=== PATIENT | female | born 1985 | race Two or more races ===

== ENCOUNTER 2018-11-25 12:06 | Emergency (ER) | payer MEDICAID ==
[~2018-11-25] VITALS: Ht 154.9 cm; Wt 65.8 kg
--- NOTE | 2018-11-25 12:48 | NUR ---
LOWER ABDOMINAL PAIN SINCE LAST NIGHT, FEELING FAINT WHILE AT [facility] THIS MORNING. STATES PAIN IS CURRENTLY "MINIMAL" AND FEELS DULL. DENIES CHANGES IN BOWEL/BLADDER HABITS. DENIES N/V. AWAITING EVAL. WILL MONITOR ACCORDINGLY.
[2018-11-25 13:05] LABS: BASOPHILS % (AUTO) 0.2 % (0.0-2.0); EOSINOPHILS % (AUTO) 0.5 % (0.0-6.0); HEMATOCRIT 40 % (33-45); HEMOGLOBIN 13.3 g/dL (11.5-14.8); LYMPHOCYTES # (AUTO) 1.1 /CMM (0.8-4.8); LYMPHOCYTES % (AUTO) 5.9 % (20.0-44.0); MEAN CORPUSCULAR HGB CONC 33 g/dl (31.0-36.0); MEAN CORPUSCULAR VOLUME 90 fL (82-100); MONOCYTES # (AUTO) 0.8 /CMM (0.1-1.30); MONOCYTES % (AUTO) 4.4 % (2.0-12.0); NEUTROPHILS # (AUTO) 16.3 /CMM (1.8-8.9); PLATELET COUNT (AUTO) 396 /CMM (150-450); RED BLOOD CELL COUNT(AUTO) 4.45 MIL/uL (4.0-5.2); WHITE BLOOD COUNT (AUTO) 18.4 K/uL (4.3-11.0)
--- NOTE | 2018-11-25 13:08 | NUR ---
VIDEO CONTROL OPERATOR AT BEDSIDE
--- NOTE | 2018-11-25 13:10 | NUR ---
URINE SENT TO STAT LAB
[2018-11-25 13:14] LABS: CREATININE 0.7 mg/dL (0.6-1.3); POTASSIUM 4.2 mmol/L (3.5-5.1)
[2018-11-25 13:33] LABS: APPEARANCE,URINE Clear (CLEAR); BILIRUBIN,URINE Negative (NEGATIVE); BLOOD, URINE Negative Ery/uL (NEGATIVE); COLOR,URINE Yellow (YELLOW); KETONES,URINE Negative (NEGATIVE); LEUKOCYTE ESTERASE ,URINE Negative (NEGATIVE); NITRITE, URINE Negative (NEGATIVE); PROTEIN,URINE Negative (NEGATIVE); UGLUCOSE Negative (NEGATIVE); UROBILINOGEN,URINE 0.2 EU/dL (0.2)
[2018-11-25 13:34] LABS: PH,URINE >9.0 (5.0-8.0)
--- NOTE | 2018-11-25 14:27 | NUR ---
PA ZEPYUR AT BEDSIDE FOR PELVIC EXAM
--- NOTE | 2018-11-25 15:04 | NUR ---
PT TAKEN TO CT VIA WC
--- NOTE | 2018-11-25 16:40 | NUR ---
Patient discharged to home in stable condition. Written and verbal after care instructions given. Patient verbalizes understanding of instruction.
[2018-11-25 16:53] VITALS: BP 112/86
== END 2018-11-25 16:40 | disposition home or self-care (01) ==
LOC: ER 12:06
DX: N83.201 Unspecified ovarian cyst, right side (principal); N76.0 Acute vaginitis
CPT/HCPCS: 36415; 76856-TC; 80048-TC; 81000-TC; 84703-TC; 85025-TC; 87210-TC

== ENCOUNTER 2019-02-26 13:53 | Emergency (ER) | payer MEDICAID ==
[~2019-02-26] VITALS: Ht 152.4 cm; Wt 60.8 kg
--- NOTE | 2019-02-26 14:07 | NUR ---
PT CAME TO ER C/O LARGE AMOUNT OF VAGINAL BLEED SINCE YESTERDAY. PT STATES THAT SHE HAS AN OVARIAN CYST THAT MIGHT HAVE BURST. AAOX4. AMBULATORY. NO SOB. NOT IN ANY DISTRESS. WILL CONTINUE TO MONITOR AWAITING MD SEO.
[2019-02-26 14:23] LABS: BASOPHILS # (AUTO) 0.1 /CMM (0.0-0.2); BASOPHILS % (AUTO) 0.4 % (0.0-2.0); EOSINOPHILS % (AUTO) 0.1 % (0.0-6.0); HEMATOCRIT 36 % (33-45); HEMOGLOBIN 12.1 g/dL (11.5-14.8); LYMPHOCYTES # (AUTO) 1.1 /CMM (0.8-4.8); LYMPHOCYTES % (AUTO) 5.6 % (20.0-44.0); MEAN CORPUSCULAR HGB CONC 33 g/dl (31.0-36.0); MEAN CORPUSCULAR VOLUME 93 fL (82-100); MONOCYTES # (AUTO) 0.9 /CMM (0.1-1.30); MONOCYTES % (AUTO) 4.4 % (2.0-12.0); NEUTROPHILS # (AUTO) 17.6 /CMM (1.8-8.9); NEUTROPHILS % (AUTO) 89.5 % (43.0-81.0); PLATELET COUNT (AUTO) 310 /CMM (150-450); RED BLOOD CELL COUNT(AUTO) 3.89 MIL/uL (4.0-5.2); WHITE BLOOD COUNT (AUTO) 19.7 K/uL (4.3-11.0)
[2019-02-26 14:38] LABS: CALCIUM, SERUM 8.6 mg/dL (8.5-10.1); CREATININE 0.7 mg/dL (0.6-1.3)
[2019-02-26 14:40] LABS: APPEARANCE,URINE SLIGHTLY HAZY (CLEAR); BILIRUBIN,URINE SMALL (NEGATIVE); BLOOD, URINE Trace-intact Ery/uL (NEGATIVE); COLOR,URINE DARK YELLOW (YELLOW); KETONES,URINE Trace (NEGATIVE); LEUKOCYTE ESTERASE ,URINE Negative (NEGATIVE); NITRITE, URINE Negative (NEGATIVE); PH,URINE 6.5 (5.0-8.0); PROTEIN,URINE 30 mg/dl (NEGATIVE); UGLUCOSE Negative (NEGATIVE); UROBILINOGEN,URINE 0.2 EU/dL (0.2)
[2019-02-26 14:43] LABS: ALBUMIN 3.9 g/dL (3.4-5.0); BILIRUBIN,DIRECT 0.1 mg/dL (0.0-0.2); BILIRUBIN,TOTAL 0.7 mg/dL (0.2-1.0); TOTAL PROTEIN, SERUM 7.5 g/dL (6.4-8.2)
[2019-02-26 14:44] LABS: BACTERIA,URINE Few /HPF (None Seen); SQUAMOUS EPITHELIAL CELL,UR Few /HPF (None Seen); WBC,URINE 0-2 /HPF (0-3)
--- NOTE | 2019-02-26 14:48 | NUR ---
US TECH AT BEDSIDE
--- NOTE | 2019-02-26 15:15 | NUR ---
CALLED DR DENNISON, SPEAKING WITH DR CHASE
[2019-02-26] MEDS ORDERED: IV NS 0.9% 500 ML IV ONE (16:00)
[2019-02-26] MEDS ORDERED: KETOROLAC TROMETHAMINE INJ 30 MG/ML VIAL IV ONE (16:00)
[2019-02-26] MEDS ORDERED: KETOROLAC TROMETHAMINE 15 MG/ML VIAL ONE (16:06)
[2019-02-26] MEDS ORDERED: BUPR100T6 PO (16:28)
[2019-02-26] MEDS ORDERED: CT SWABBABLE VALVE TRANS SET 1 EA INFUS.SET MC ONE (16:39)
[2019-02-26] MEDS ORDERED: IV NS 0.9% 250 ML IV ONE (16:39)
[2019-02-26] MEDS ORDERED: IOHEXOL-300 100 ML VIAL IV ONE (16:39)
--- NOTE | 2019-02-26 18:30 | NUR ---
IV removed. Catheter intact and site benign. Pressure and 4x4 applied to site. No bleeding noted. Patient discharged to home in stable condition. Written and verbal after care instructions given. Patient verbalizes understanding of instruction.
[2019-02-26 18:31] VITALS: BP 96/60
== END 2019-02-26 18:32 | disposition home or self-care (01) ==
LOC: ER 13:56
DX: N83.201 Unspecified ovarian cyst, right side (principal); Z60.2 Problems related to living alone; Z79.899 Other long term (current) drug therapy
CPT/HCPCS: 36415; 74177; 76856; 80048; 80076; 81001; 84703; 85025; 85730; 96374; 99284; J1885; J7030; J7050; Q9967; 81000-TC